=== PATIENT | female | born 1950 | race Caucasian/White ===

== ENCOUNTER 2021-06-27 17:57 | Inpatient (IN) | payer MEDICARE ==
[~2021-06-27] VITALS: Ht 165.1 cm; Wt 90.0 kg
[2021-06-27] MEDS ORDERED: SODIUM CHLORIDE 0.9% 500 ML IV ONE (18:45)
[2021-06-27 18:51] LABS: Hemoglobin 13.5 g/dL (12.2-16.2); Mean Corpuscular Hemoglobin 29.4 pg (28.0-32.0); Mean Corpuscular Hgb Conc. 33.7 g/dL (32.0-36.0); Mean Corpuscular Volume 87.1 fL (80.0-100.0); Red Blood Cells 4.59 10^6/uL (4.0-5.20); Red Cell Distribution Width 14.6 % (11.8-14.3)
[2021-06-27 18:54] LABS: White Blood Cell 1.7 10^3/uL (4.4-10.8)
[2021-06-27 18:56] LABS: Band Neutrophils % (manual) 0; Basophils % (manual) 0 (0.0-2.0); Blast Cells 0; Eosinophils % (manual) 0 (0-7); Metamyelocytes % 0; Myelocytes % 0; Promyelocytes % 0; Reactive Lymphocytes 0
[2021-06-27 19:05] LABS: INR 1.01 (0.9-1.15); Partial Thromboplastin Time 33.5 sec (23.6-33.0)
[2021-06-27 19:08] LABS: Albumin 3.2 g/dL (3.4-5.0); BUN/Creatinine Ratio 12.3; Calcium 8.1 mg/dL (8.5-10.1); Potassium 3.8 mmol/L (3.5-5.1)
[2021-06-27 19:10] LABS: Bilirubin, Total 0.3 mg/dL (0.2-1.0); Total Protein 6.4 g/dL (6.4-8.2)
[2021-06-27] MEDS ORDERED: METOPROLOL SUCCINATE XL 50 MG TAB PO ONE (19:15)
[2021-06-27 19:26] LABS: Lactic Acid w/Reflex 2.4 mmol/L (0.4-2.0)
[2021-06-27 19:33] LABS: Magnesium 1.7 mg/dL (1.6-2.6)
[2021-06-27 20:15] LABS: Lymphocytes % (manual) 31 (10.0-50.0); Monocytes % (manual) 5 (0-12)
[2021-06-27] MEDS ORDERED: DEXTROSE (50%) 50ML SYRG IV PRN ×2 (20:45→22:30)
[2021-06-27] MEDS ORDERED: VANCOMYCIN 1GM/250ML 250 ML IV ONE ×2 (21:45)
[2021-06-27] MEDS ORDERED: dilTIAZem 25 MG/5 ML VIAL IV ONE (21:45)
[2021-06-27] MEDS ORDERED: TACROLIMUS 1 MG CAP PO SCH (22:00)
[2021-06-27] MEDS ORDERED: INSULIN LANTUS (GLARGINE) 1 /0.01ml (100units/ml) SC SCH (22:00)
[2021-06-27] MEDS: InsuLIN REG 1unit/0.01ml Soln (100units/ml) SC SCH (22:02)
[2021-06-27] MEDS: ACCU-CHEK COMFORT CURVE STRIP VI SCH (22:03)
[2021-06-27 22:22] LABS: Urine Bacteria NONE SEEN /hpf (None Seen); Urine Blood Negative /uL (Negative); Urine Specific Gravity 1.022 (1.001-1.035); Urine WBC 2 /hpf (0 - 5)
[2021-06-27] MEDS ORDERED: NITROGLYCERIN 0.4 MG SL TAB SL PRN (22:30)
[2021-06-27] MEDS ORDERED: MORPHINE SULFATE INJECTION 2 MG/ML SYRG IV PRN (22:30)
[2021-06-27] MEDS: APIXABAN 5 MG TAB PO SCH (22:37)
[2021-06-27] MEDS: MYCOPHENOLATE 250 MG CAP PO SCH (22:37)
[2021-06-27] MEDS ORDERED: PIPERACILLIN-TAZO 4.5GM 100 ML IV ONE (22:45)
[2021-06-27 22:58] LABS: Magnesium 1.7 mg/dL (1.6-2.6)
[2021-06-27 23:07] LABS: CRP High Sensitivity 1.79 mg/dL (< 0.3)
[2021-06-28 01:20] VITALS: BP 130/74
[2021-06-28 05:00] VITALS: BP 113/70
[2021-06-28] MEDS: InsuLIN REG 1unit/0.01ml Soln (100units/ml) SC SCH ×5 (05:35→21:46)
[2021-06-28] MEDS: ACCU-CHEK COMFORT CURVE STRIP VI SCH ×5 (05:35→21:45)
[2021-06-28 06:06] LABS: Hematocrit 39.4 % (36.0-46.0); Hemoglobin 13.1 g/dL (12.2-16.2); Mean Corpuscular Hgb Conc. 33.3 g/dL (32.0-36.0); Red Blood Cells 4.52 10^6/uL (4.0-5.20); Red Cell Distribution Width 14.5 % (11.8-14.3); White Blood Cell 2.4 10^3/uL (4.4-10.8)
[2021-06-28] MEDS: LEVOTHYROXINE SODIUM 112 MCG TAB PO SCH (06:18)
[2021-06-28 06:24] LABS: Basophils % (manual) 0 (0.0-2.0); Blast Cells 0; Eosinophils % (manual) 0 (0-7); Metamyelocytes % 0; Myelocytes % 0; Promyelocytes % 0; Reactive Lymphocytes 0
[2021-06-28 06:31] LABS: Albumin 3.1 g/dL (3.4-5.0); Potassium 3.5 mmol/L (3.5-5.1)
[2021-06-28 06:36] LABS: BUN/Creatinine Ratio 12.5; Bilirubin, Total 0.2 mg/dL (0.2-1.0)
[2021-06-28] MEDS ORDERED: TRAZ1TAB12 PO (06:45)
[2021-06-28] MEDS ORDERED: PRE1T PO (06:45)
[2021-06-28] MEDS ORDERED: ATOR20TA PO (06:45)
[2021-06-28] MEDS ORDERED: APIX5TAB PO (06:45)
[2021-06-28] MEDS ORDERED: MULT-1018 PO (06:45)
[2021-06-28] MEDS ORDERED: INSU100I43 SC (06:45)
[2021-06-28] MEDS ORDERED: MAGN400T40 PO (06:45)
[2021-06-28] MEDS ORDERED: CALC500C66 PO (06:45)
[2021-06-28] MEDS ORDERED: FERR-20 PO (06:45)
[2021-06-28] MEDS ORDERED: TACR1CAP19 PO ×2 (06:45)
[2021-06-28] MEDS ORDERED: SULF400I3 PO (06:45)
[2021-06-28] MEDS ORDERED: MELA3TAB27 PO (06:45)
[2021-06-28] MEDS ORDERED: METO-289 PO (06:45)
[2021-06-28] MEDS ORDERED: TIZA2CAP7 PO (06:45)
[2021-06-28] MEDS ORDERED: SENN1TAB14 PO (06:45)
[2021-06-28] MEDS ORDERED: LEVO112T4 PO (06:45)
[2021-06-28] MEDS ORDERED: LORA0.5T20 PO (06:45)
[2021-06-28] MEDS ORDERED: INSLANTI SC (06:45)
[2021-06-28] MEDS ORDERED: MYCO250C PO (06:45)
[2021-06-28] MEDS ORDERED: NATE120T5 PO (06:45)
[2021-06-28 08:03] LABS: Band Neutrophils % (manual) 2; Lymphocytes % (manual) 62 (10.0-50.0); Monocytes % (manual) 11 (0-12)
[2021-06-28] MEDS: ALBUTEROL SULF HFA 90MCG INH 200DOSE IN PRN (08:17)
[2021-06-28 09:00] VITALS: BP 126/69
[2021-06-28] MEDS ORDERED: DexAMETHasone SOD PHOS 10MG/1ML VIAL INJ IV SCH (10:00)
[2021-06-28] MEDS ORDERED: levoFLOXacin 500MG 100 ML IV SCH (10:00)
[2021-06-28] MEDS ORDERED: PANTOPRAZOLE 40 MG TAB PO SCH (10:00)
[2021-06-28] MEDS ORDERED: ENOXAPARIN SOD 30 MG/0.3 ML SYRINGE SC SCH (10:00)
[2021-06-28] MEDS ORDERED: METOPROLOL SUCCINATE XL 50 MG TAB PO SCH (10:00)
[2021-06-28] MEDS: ZINC SULFATE 220mg CAP or TAB PO SCH (10:07)
[2021-06-28] MEDS: APIXABAN 5 MG TAB PO SCH ×2 (10:07→21:41)
[2021-06-28] MEDS: ASCORBIC ACID 1,000 MG TAB PO SCH (10:08)
[2021-06-28] MEDS: CHOLECALCIFEROL (VITD3) 2,000 UNIT CAP/TAB PO SCH (10:08)
[2021-06-28] MEDS: MYCOPHENOLATE 250 MG CAP PO SCH ×2 (11:07→22:43)
[2021-06-28] MEDS: TACROLIMUS 1 MG CAP PO SCH ×2 (11:07→22:45)
[2021-06-28 13:00] VITALS: BP 111/74
[2021-06-28] MEDS ORDERED: FAMOTIDINE (10MG/ML) 2ML VL IV ONE (14:30)
[2021-06-28] MEDS: LORazepam 0.5 MG TAB PO PRN (15:03)
[2021-06-28] MEDS: SODIUM CHLORIDE 0.9% 1,000 ML IV SCH (15:04)
[2021-06-28] MEDS ORDERED: SUCR1SUS10 PO (15:25)
[2021-06-28] MEDS ORDERED: HYDR-4296 PO (15:25)
[2021-06-28] MEDS ORDERED: MELA5TAB8 PO (15:25)
[2021-06-28] MEDS ORDERED: NATE60TA5 PO (15:25)
[2021-06-28] MEDS ORDERED: DOCU100T15 PO (15:25)
[2021-06-28] MEDS ORDERED: PRED10TA PO (15:25)
[2021-06-28] MEDS ORDERED: HYDR-3682 PO (15:25)
[2021-06-28 17:00] VITALS: BP 108/65
[2021-06-28] MEDS: ATORVASTATIN 20 MG TAB PO SCH (21:41)
[2021-06-28] MEDS: methylPREDNISolone SOD SUCC 40 MG/ML VL IV SCH (21:42)
[2021-06-28] MEDS: metroNIDAZOLE 500MG/100ML 100 ML IV SCH (21:43)
[2021-06-28] MEDS: INSULIN LANTUS (GLARGINE) 1 /0.01ml (100units/ml) SC SCH (21:44)
[2021-06-28 22:00] VITALS: BP 123/49
[2021-06-28] MEDS: METOPROLOL TARTRATE 50 MG TAB PO SCH (22:40)
[2021-06-29 05:00] VITALS: BP 152/70
[2021-06-29 05:54] LABS: Mean Corpuscular Volume 87.1 fL (80.0-100.0); Red Cell Distribution Width 14.6 % (11.8-14.3)
[2021-06-29 05:58] LABS: Hematocrit 37.6 % (36.0-46.0); Hemoglobin 12.7 g/dL (12.2-16.2); Mean Corpuscular Hemoglobin 29.5 pg (28.0-32.0); Mean Corpuscular Hgb Conc. 33.9 g/dL (32.0-36.0); Red Blood Cells 4.32 10^6/uL (4.0-5.20)
[2021-06-29 06:14] LABS: BUN/Creatinine Ratio 12.6; Potassium 4.2 mmol/L (3.5-5.1)
[2021-06-29 06:15] LABS: Calcium 8.4 mg/dL (8.5-10.1)
[2021-06-29 06:33] LABS: White Blood Cell 1.5 10^3/uL (4.4-10.8)
[2021-06-29] MEDS: LEVOTHYROXINE SODIUM 112 MCG TAB PO SCH (06:34)
[2021-06-29] MEDS: metroNIDAZOLE 500MG/100ML 100 ML IV SCH ×3 (06:34→21:53)
[2021-06-29 06:35] LABS: Basophils % (manual) 0 (0.0-2.0); Blast Cells 0; Eosinophils % (manual) 0 (0-7); Metamyelocytes % 0; Myelocytes % 0; Promyelocytes % 0; Reactive Lymphocytes 0
[2021-06-29] MEDS: InsuLIN REG 1unit/0.01ml Soln (100units/ml) SC SCH ×5 (06:37→21:54)
[2021-06-29] MEDS: SODIUM CHLORIDE 0.9% 1,000 ML IV SCH (06:37)
[2021-06-29] MEDS: ACCU-CHEK COMFORT CURVE STRIP VI SCH ×5 (06:38→22:06)
[2021-06-29] MEDS: ALBUTEROL SULF HFA 90MCG INH 200DOSE IN PRN (07:15)
[2021-06-29 08:23] LABS: Band Neutrophils % (manual) 3; Lymphocytes % (manual) 30 (10.0-50.0); Monocytes % (manual) 15 (0-12)
[2021-06-29 09:00] VITALS: BP 136/69
[2021-06-29] MEDS: FAMOTIDINE (10MG/ML) 2ML VL IV SCH (09:41)
[2021-06-29] MEDS: levoFLOXacin 250MG 50 ML IV SCH (09:41)
[2021-06-29] MEDS: methylPREDNISolone SOD SUCC 40 MG/ML VL IV SCH (09:42)
[2021-06-29] MEDS: MYCOPHENOLATE 250 MG CAP PO SCH ×2 (09:42→22:09)
[2021-06-29] MEDS: ZINC SULFATE 220mg CAP or TAB PO SCH (09:42)
[2021-06-29] MEDS: METOPROLOL TARTRATE 50 MG TAB PO SCH ×2 (09:43→22:10)
[2021-06-29] MEDS: APIXABAN 5 MG TAB PO SCH ×2 (09:43→22:09)
[2021-06-29] MEDS: TACROLIMUS 1 MG CAP PO SCH ×2 (09:43→22:08)
[2021-06-29] MEDS: CHOLECALCIFEROL (VITD3) 2,000 UNIT CAP/TAB PO SCH (09:44)
[2021-06-29] MEDS: ASCORBIC ACID 1,000 MG TAB PO SCH (09:44)
[2021-06-29] MEDS: LORazepam 0.5 MG TAB PO PRN (09:44)
[2021-06-29] MEDS ORDERED: DEXTROSE (50%) 50ML SYRG IV PRN (11:30)
[2021-06-29 12:30] VITALS: BP 150/75
[2021-06-29 17:00] VITALS: BP 142/72
[2021-06-29 21:31] VITALS: BP 157/70
[2021-06-29] MEDS: INSULIN LANTUS (GLARGINE) 1 /0.01ml (100units/ml) SC SCH (21:55)
[2021-06-29] MEDS: ATORVASTATIN 20 MG TAB PO SCH (22:08)
[2021-06-29] MEDS: ACETAMINOPHEN 500 MG TAB PO PRN (22:22)
[2021-06-30] MEDS: LORazepam 0.5 MG TAB PO PRN ×3 (01:07→22:08)
[2021-06-30 05:00] VITALS: BP 141/63
[2021-06-30] MEDS: InsuLIN REG 1unit/0.01ml Soln (100units/ml) SC SCH ×4 (06:27→22:07)
[2021-06-30] MEDS: LEVOTHYROXINE SODIUM 112 MCG TAB PO SCH (06:40)
[2021-06-30] MEDS: metroNIDAZOLE 500MG/100ML 100 ML IV SCH (06:40)
[2021-06-30] MEDS: ACCU-CHEK COMFORT CURVE STRIP VI SCH ×4 (06:40→22:04)
[2021-06-30 07:30] LABS: Potassium 3.6 mmol/L (3.5-5.1)
[2021-06-30 08:00] LABS: Calcium 8.7 mg/dL (8.5-10.1)
[2021-06-30] MEDS: ALBUTEROL SULF HFA 90MCG INH 200DOSE IN PRN ×2 (08:33→20:27)
[2021-06-30] MEDS: levoFLOXacin 250MG 50 ML IV SCH (08:43)
[2021-06-30] MEDS: CHOLECALCIFEROL (VITD3) 2,000 UNIT CAP/TAB PO SCH (08:43)
[2021-06-30] MEDS: FAMOTIDINE (10MG/ML) 2ML VL IV SCH (08:43)
[2021-06-30] MEDS: APIXABAN 5 MG TAB PO SCH (08:44)
[2021-06-30] MEDS: ZINC SULFATE 220mg CAP or TAB PO SCH (08:44)
[2021-06-30] MEDS: ASCORBIC ACID 1,000 MG TAB PO SCH (08:44)
[2021-06-30] MEDS: METOPROLOL TARTRATE 50 MG TAB PO SCH ×2 (08:45→22:06)
[2021-06-30 09:00] VITALS: BP 144/95
[2021-06-30] MEDS: TACROLIMUS 1 MG CAP PO SCH ×2 (09:03→22:06)
[2021-06-30] MEDS: MYCOPHENOLATE 250 MG CAP PO SCH ×2 (09:03→22:04)
[2021-06-30] MEDS ORDERED: methylPREDNISolone SOD SUCC 40 MG/ML VL IV SCH (10:00)
[2021-06-30] MEDS ORDERED: traMADol HCL 50 MG TAB PO PRN (12:00)
[2021-06-30] MEDS ORDERED: METOPROLOL TARTRATE 50 MG TAB PO ONE (12:00)
[2021-06-30] MEDS ORDERED: LEVOTHYROXINE SODIUM 112 MCG TAB PO ONE (12:00)
[2021-06-30] MEDS: Glucerna Carbsteady SHAKE Vanilla 8oz PO SCH ×2 (12:25→18:08)
[2021-06-30 13:00] VITALS: BP 110/84
[2021-06-30] MEDS ORDERED: DIGOXIN (250MCG/ML) 2 ML AMPULE IV ONE ×3 (14:00→17:45)
[2021-06-30] MEDS ORDERED: ONDANSETRON HCL 4 MG/2 ML VIAL ONE (14:21)
[2021-06-30] MEDS ORDERED: AMIODARONE HCL 150 MG in D5W 5% 100 ML IV ONE (16:15)
[2021-06-30] MEDS ORDERED: AMIODARONE 450mg/250ml AE 250 ML IV SCH (16:30)
[2021-06-30 17:00] VITALS: BP 107/71
[2021-06-30] MEDS: DOXYCYCLINE 100MG/250ML 250 ML IV SCH (17:00)
[2021-06-30 17:30] VITALS: BP 118/84
[2021-06-30] MEDS ORDERED: MAGNESIUM SULFATE 1GM/100ML 100 ML IV ONE (17:45)
[2021-06-30] MEDS: metroNIDAZOLE 500 MG TAB PO SCH (20:20)
[2021-06-30 21:38] VITALS: BP 126/73
[2021-06-30] MEDS: APIXABAN 2.5 MG TAB PO SCH (22:05)
[2021-06-30] MEDS: ATORVASTATIN 20 MG TAB PO SCH (22:05)
[2021-06-30] MEDS: INSULIN LANTUS (GLARGINE) 1 /0.01ml (100units/ml) SC SCH (22:07)
[2021-06-30] MEDS: AMIODARONE 450mg/250ml AE 250 ML IV SCH (22:52)
[2021-07-01] VITALS (7 sets, daily range): BP systolic 89–113; BP diastolic 55–79
[2021-07-01] MEDS: ACETAMINOPHEN 500 MG TAB PO PRN (01:40)
[2021-07-01] MEDS: ONDANSETRON HCL 4 MG/2 ML VIAL IV PRN ×2 (03:32→16:55)
[2021-07-01] MEDS: metroNIDAZOLE 500 MG TAB PO SCH ×2 (03:43→12:17)
[2021-07-01] MEDS ORDERED: CARVEDILOL 3.125 MG TAB PO ONE ×2 (04:45)
[2021-07-01] MEDS: DOXYCYCLINE 100MG/250ML 250 ML IV SCH ×2 (05:11→16:57)
[2021-07-01] MEDS: ACCU-CHEK COMFORT CURVE STRIP VI SCH ×4 (06:53→22:20)
[2021-07-01] MEDS: LEVOTHYROXINE SODIUM 112 MCG TAB PO SCH (06:54)
[2021-07-01] MEDS: InsuLIN REG 1unit/0.01ml Soln (100units/ml) SC SCH ×4 (06:56→22:26)
[2021-07-01] MEDS: LORazepam 0.5 MG TAB PO PRN ×2 (07:01→23:35)
[2021-07-01 07:17] LABS: Albumin 3.2 g/dL (3.4-5.0); Calcium 8.6 mg/dL (8.5-10.1); Magnesium 2.6 mg/dL (1.6-2.6)
[2021-07-01 07:20] LABS: Hematocrit 42.4 % (36.0-46.0); Hemoglobin 14.3 g/dL (12.2-16.2); Mean Corpuscular Hgb Conc. 33.7 g/dL (32.0-36.0); Mean Corpuscular Volume 86.1 fL (80.0-100.0); Red Blood Cells 4.93 10^6/uL (4.0-5.20); Red Cell Distribution Width 14.5 % (11.8-14.3); White Blood Cell 2.7 10^3/uL (4.4-10.8)
[2021-07-01 07:22] LABS: Basophils % (manual) 0 (0.0-2.0); Eosinophils % (manual) 0 (0-7); Metamyelocytes % 0
[2021-07-01 07:23] LABS: Blast Cells 0; Myelocytes % 0; Promyelocytes % 0; Reactive Lymphocytes 0
[2021-07-01 07:26] LABS: BUN/Creatinine Ratio 17.9; Bilirubin, Total 0.3 mg/dL (0.2-1.0); CRP High Sensitivity 1.95 mg/dL (< 0.3)
[2021-07-01] MEDS ORDERED: dilTIAZem 25 MG/5 ML VIAL IV ONE (07:30)
[2021-07-01 08:13] LABS: Band Neutrophils % (manual) 2; Lymphocytes % (manual) 50 (10.0-50.0); Monocytes % (manual) 17 (0-12)
[2021-07-01] MEDS ORDERED: POTASSIUM EFFERVESENT TAB 25 MEQ PO ONE ×2 (08:15→10:00)
[2021-07-01] MEDS ORDERED: DIGOXIN (250MCG/ML) 2 ML AMPULE IV ONE (08:15)
[2021-07-01] MEDS: Glucerna Carbsteady SHAKE Vanilla 8oz PO SCH ×3 (09:12→17:30)
[2021-07-01] MEDS: FAMOTIDINE (10MG/ML) 2ML VL IV SCH (09:46)
[2021-07-01] MEDS: ZINC SULFATE 220mg CAP or TAB PO SCH (09:46)
[2021-07-01] MEDS: APIXABAN 2.5 MG TAB PO SCH ×2 (09:46→22:20)
[2021-07-01] MEDS: MYCOPHENOLATE 250 MG CAP PO SCH ×2 (09:46→22:19)
[2021-07-01] MEDS: predniSONE 5 MG TAB PO SCH (09:46)
[2021-07-01] MEDS: CHOLECALCIFEROL (VITD3) 2,000 UNIT CAP/TAB PO SCH (09:47)
[2021-07-01] MEDS: TACROLIMUS 1 MG CAP PO SCH ×2 (09:47→22:20)
[2021-07-01] MEDS: ASCORBIC ACID 1,000 MG TAB PO SCH (09:47)
[2021-07-01] MEDS: dilTIAZem 120MG ER CAP PO SCH (09:53)
[2021-07-01] MEDS ORDERED: FUROSEMIDE 20 MG/2 ML VIAL IV ONE (15:15)
[2021-07-01] MEDS ORDERED: POTASSIUM CHL 20 Meq TABLET PO ONE (15:15)
[2021-07-01] MEDS: AMIODARONE 450mg/250ml AE 250 ML IV SCH (15:30)
[2021-07-01] MEDS: ALBUTEROL SULF HFA 90MCG INH 200DOSE IN PRN (15:42)
[2021-07-01] MEDS ORDERED: CARVEDILOL 3.125 MG TAB PO SCH (22:00)
[2021-07-01] MEDS: ATORVASTATIN 20 MG TAB PO SCH (22:20)
[2021-07-01] MEDS: INSULIN LANTUS (GLARGINE) 1 /0.01ml (100units/ml) SC SCH (22:26)
[2021-07-02] VITALS (9 sets, daily range): BP systolic 94–143; BP diastolic 61–72
[2021-07-02] MEDS ORDERED: METOPROLOL TARTRATE 50 MG TAB PO SCH (01:28)
[2021-07-02] MEDS: AMIODARONE 450mg/250ml AE 250 ML IV SCH ×2 (04:30→17:30)
[2021-07-02] MEDS: DOXYCYCLINE 100MG/250ML 250 ML IV SCH ×2 (05:00→16:09)
[2021-07-02 06:41] LABS: BUN/Creatinine Ratio 15.1; Calcium 8.4 mg/dL (8.5-10.1); Potassium 3.9 mmol/L (3.5-5.1)
[2021-07-02] MEDS: ACCU-CHEK COMFORT CURVE STRIP VI SCH ×4 (06:54→22:15)
[2021-07-02] MEDS: LEVOTHYROXINE SODIUM 112 MCG TAB PO SCH (06:54)
[2021-07-02] MEDS: InsuLIN REG 1unit/0.01ml Soln (100units/ml) SC SCH ×4 (06:56→22:23)
[2021-07-02] MEDS: Glucerna Carbsteady SHAKE Vanilla 8oz PO SCH ×3 (08:00→16:28)
[2021-07-02] MEDS: ASCORBIC ACID 1,000 MG TAB PO SCH (09:05)
[2021-07-02] MEDS: TACROLIMUS 1 MG CAP PO SCH ×2 (09:05→22:15)
[2021-07-02] MEDS: MYCOPHENOLATE 250 MG CAP PO SCH ×2 (09:05→22:14)
[2021-07-02] MEDS: METOPROLOL TARTRATE 25 MG TAB PO SCH ×2 (09:05→22:15)
[2021-07-02] MEDS: APIXABAN 2.5 MG TAB PO SCH ×2 (09:05→22:14)
[2021-07-02] MEDS: predniSONE 5 MG TAB PO SCH (09:05)
[2021-07-02] MEDS: ZINC SULFATE 220mg CAP or TAB PO SCH (09:05)
[2021-07-02] MEDS: CHOLECALCIFEROL (VITD3) 2,000 UNIT CAP/TAB PO SCH (09:06)
[2021-07-02] MEDS: dilTIAZem 120MG ER CAP PO SCH (09:36)
[2021-07-02] MEDS: LORazepam 0.5 MG TAB PO PRN (16:28)
[2021-07-02] MEDS: ALBUTEROL SULF HFA 90MCG INH 200DOSE IN PRN (21:59)
[2021-07-02] MEDS: AMIODARONE HCL 200 MG TAB PO SCH (22:14)
[2021-07-02] MEDS: ATORVASTATIN 20 MG TAB PO SCH (22:14)
[2021-07-02] MEDS: INSULIN LANTUS (GLARGINE) 1 /0.01ml (100units/ml) SC SCH (22:23)
[2021-07-03] MEDS: DOXYCYCLINE 100MG/250ML 250 ML IV SCH ×2 (04:51→16:29)
[2021-07-03 05:00] VITALS: BP 125/88
[2021-07-03] MEDS: LEVOTHYROXINE SODIUM 112 MCG TAB PO SCH (06:36)
[2021-07-03] MEDS: ACCU-CHEK COMFORT CURVE STRIP VI SCH ×4 (06:36→21:33)
[2021-07-03] MEDS: InsuLIN REG 1unit/0.01ml Soln (100units/ml) SC SCH ×4 (06:39→21:38)
[2021-07-03] MEDS: Glucerna Carbsteady SHAKE Vanilla 8oz PO SCH ×3 (07:50→16:33)
[2021-07-03] MEDS: ZINC SULFATE 220mg CAP or TAB PO SCH (08:46)
[2021-07-03] MEDS: METOPROLOL TARTRATE 25 MG TAB PO SCH ×2 (08:46→21:46)
[2021-07-03] MEDS: predniSONE 5 MG TAB PO SCH (08:46)
[2021-07-03] MEDS: AMIODARONE HCL 200 MG TAB PO SCH ×2 (08:46→21:44)
[2021-07-03] MEDS: MYCOPHENOLATE 250 MG CAP PO SCH ×2 (08:46→21:41)
[2021-07-03] MEDS: TACROLIMUS 1 MG CAP PO SCH ×2 (08:47→21:45)
[2021-07-03] MEDS: dilTIAZem 120MG ER CAP PO SCH (08:47)
[2021-07-03] MEDS: ASCORBIC ACID 1,000 MG TAB PO SCH (08:47)
[2021-07-03] MEDS: CHOLECALCIFEROL (VITD3) 2,000 UNIT CAP/TAB PO SCH (08:47)
[2021-07-03 09:00] VITALS: BP 120/69
[2021-07-03] MEDS: APIXABAN 2.5 MG TAB PO SCH ×2 (09:31→21:44)
[2021-07-03 13:00] VITALS: BP 130/62
[2021-07-03] MEDS: ONDANSETRON HCL 4 MG/2 ML VIAL IV PRN (16:03)
[2021-07-03 17:00] VITALS: BP 130/57
[2021-07-03 20:00] VITALS: BP 118/59
[2021-07-03] MEDS: ALBUTEROL SULF HFA 90MCG INH 200DOSE IN PRN (21:13)
[2021-07-03] MEDS: INSULIN LANTUS (GLARGINE) 1 /0.01ml (100units/ml) SC SCH (21:37)
[2021-07-03] MEDS: ATORVASTATIN 20 MG TAB PO SCH (21:41)
[2021-07-03 22:00] VITALS: BP 118/59
[2021-07-04 04:41] VITALS: BP 104/71
[2021-07-04] MEDS: DOXYCYCLINE 100MG/250ML 250 ML IV SCH (05:01)
[2021-07-04] MEDS: ALBUTEROL SULF HFA 90MCG INH 200DOSE IN PRN (05:42)
[2021-07-04] MEDS: LEVOTHYROXINE SODIUM 112 MCG TAB PO SCH (06:35)
[2021-07-04] MEDS: ACCU-CHEK COMFORT CURVE STRIP VI SCH ×4 (06:35→22:19)
[2021-07-04] MEDS: InsuLIN REG 1unit/0.01ml Soln (100units/ml) SC SCH ×4 (06:39→22:22)
[2021-07-04] MEDS: Glucerna Carbsteady SHAKE Vanilla 8oz PO SCH ×3 (08:00→18:00)
[2021-07-04 08:30] VITALS: BP 86/47
[2021-07-04] MEDS: predniSONE 5 MG TAB PO SCH (09:43)
[2021-07-04] MEDS: ZINC SULFATE 220mg CAP or TAB PO SCH (09:43)
[2021-07-04] MEDS: MYCOPHENOLATE 250 MG CAP PO SCH ×2 (09:44→22:19)
[2021-07-04] MEDS: AMIODARONE HCL 200 MG TAB PO SCH ×2 (09:44→22:17)
[2021-07-04] MEDS: ASCORBIC ACID 1,000 MG TAB PO SCH (09:45)
[2021-07-04] MEDS: TACROLIMUS 1 MG CAP PO SCH ×2 (09:45→22:18)
[2021-07-04] MEDS: CHOLECALCIFEROL (VITD3) 2,000 UNIT CAP/TAB PO SCH (09:45)
[2021-07-04] MEDS: METOPROLOL TARTRATE 25 MG TAB PO SCH ×2 (09:45→22:18)
[2021-07-04] MEDS: APIXABAN 2.5 MG TAB PO SCH (09:45)
[2021-07-04] MEDS: LORazepam 0.5 MG TAB PO PRN (10:16)
[2021-07-04 12:30] VITALS: BP 105/67
[2021-07-04] MEDS: ceFAZolin 1GM/50ML 50 ML IV SCH (13:34)
[2021-07-04] MEDS: ACETAMINOPHEN 325 MG TAB PO PRN (13:34)
[2021-07-04 15:37] LABS: Basophils # (auto) 0 10 ^3/uL (0-0.2); Basophils % (auto) 0.5 % (0.0-2.0); Eosinophils # (auto) 0 10 ^3/uL (0-0.8); Eosinophils % (auto) 0.1 % (0.0-7.0); Hematocrit 42.1 % (36.0-46.0); Hemoglobin 14.6 g/dL (12.2-16.2); Lymphocytes # (auto) 0.7 10 ^3/uL (0.4-5.4); Lymphocytes % (auto) 22.7 % (10.0-50.0); Mean Corpuscular Hemoglobin 29.8 pg (28.0-32.0); Mean Corpuscular Hgb Conc. 34.6 g/dL (32.0-36.0); Monocytes # (auto) 0.5 10 ^3/uL (0-1.3); Monocytes % (auto) 15.2 % (0.0-12.0); Neutrophils # (auto) 1.8 10 ^3/uL (1.6-8.6); Neutrophils % (auto) 61.5 % (37.0-80.0); Nucleated Red Blood Cells % 0.5 %; Red Cell Distribution Width 14.7 % (11.8-14.3)
[2021-07-04 15:40] LABS: Albumin 2.7 g/dL (3.4-5.0); Calcium 8.1 mg/dL (8.5-10.1); Potassium 4.4 mmol/L (3.5-5.1)
[2021-07-04 15:42] LABS: BUN/Creatinine Ratio 18.4
[2021-07-04 15:45] LABS: Bilirubin, Total 0.4 mg/dL (0.2-1.0); Total Protein 5.7 g/dL (6.4-8.2)
[2021-07-04 17:00] VITALS: BP 106/44
[2021-07-04 22:00] VITALS: BP 121/69
[2021-07-04] MEDS: ATORVASTATIN 20 MG TAB PO SCH (22:18)
[2021-07-04] MEDS: APIXABAN 5 MG TAB PO SCH (22:19)
[2021-07-04] MEDS: INSULIN LANTUS (GLARGINE) 1 /0.01ml (100units/ml) SC SCH (22:24)
[2021-07-05] MEDS: ceFAZolin 1GM/50ML 50 ML IV SCH ×2 (01:58→13:58)
[2021-07-05] MEDS: LORazepam 0.5 MG TAB PO PRN ×2 (02:02→18:22)
[2021-07-05] MEDS: ACETAMINOPHEN 325 MG TAB PO PRN ×2 (05:07→18:23)
[2021-07-05] MEDS: ACCU-CHEK COMFORT CURVE STRIP VI SCH ×4 (06:53→22:03)
[2021-07-05] MEDS: LEVOTHYROXINE SODIUM 112 MCG TAB PO SCH (06:53)
[2021-07-05] MEDS: InsuLIN REG 1unit/0.01ml Soln (100units/ml) SC SCH ×4 (06:54→22:14)
[2021-07-05] MEDS: Glucerna Carbsteady SHAKE Vanilla 8oz PO SCH ×3 (08:00→18:00)
[2021-07-05 09:00] VITALS: BP 85/56
[2021-07-05 09:30] LABS: Hematocrit 42.1 % (36.0-46.0); Hemoglobin 14.2 g/dL (12.2-16.2); Mean Corpuscular Hgb Conc. 33.7 g/dL (32.0-36.0); Mean Corpuscular Volume 86.1 fL (80.0-100.0); Red Cell Distribution Width 14.6 % (11.8-14.3); White Blood Cell 3.1 10^3/uL (4.4-10.8)
[2021-07-05 09:52] LABS: Basophils % (manual) 0 (0.0-2.0); Blast Cells 0; Calcium 8.5 mg/dL (8.5-10.1); Eosinophils % (manual) 0 (0-7); Metamyelocytes % 0; Myelocytes % 0; Potassium 3.8 mmol/L (3.5-5.1); Promyelocytes % 0; Reactive Lymphocytes 0
[2021-07-05 09:59] LABS: Albumin 2.7 g/dL (3.4-5.0); BUN/Creatinine Ratio 24.3; Bilirubin, Total 0.4 mg/dL (0.2-1.0); Total Protein 5.5 g/dL (6.4-8.2)
[2021-07-05] MEDS: METOPROLOL TARTRATE 25 MG TAB PO SCH (10:00)
[2021-07-05] MEDS: APIXABAN 5 MG TAB PO SCH ×2 (10:02→22:14)
[2021-07-05] MEDS: MYCOPHENOLATE 250 MG CAP PO SCH ×2 (10:02→22:15)
[2021-07-05] MEDS: predniSONE 5 MG TAB PO SCH (10:02)
[2021-07-05] MEDS: AMIODARONE HCL 200 MG TAB PO SCH ×2 (10:02→22:14)
[2021-07-05] MEDS: ZINC SULFATE 220mg CAP or TAB PO SCH (10:02)
[2021-07-05] MEDS: ASCORBIC ACID 1,000 MG TAB PO SCH (10:03)
[2021-07-05] MEDS: CHOLECALCIFEROL (VITD3) 2,000 UNIT CAP/TAB PO SCH (10:03)
[2021-07-05] MEDS: TACROLIMUS 1 MG CAP PO SCH ×2 (10:03→22:28)
[2021-07-05] MEDS: INSULIN LANTUS (GLARGINE) 1 /0.01ml (100units/ml) SC SCH ×2 (10:05→22:13)
[2021-07-05 10:16] LABS: Band Neutrophils % (manual) 2; Lymphocytes % (manual) 31 (10.0-50.0); Monocytes % (manual) 13 (0-12)
[2021-07-05 13:00] VITALS: BP 111/66
[2021-07-05] MEDS ORDERED: DIGOXIN (250MCG/ML) 2 ML AMPULE IV ONE (15:00)
[2021-07-05 17:00] VITALS: BP 101/70
[2021-07-05 22:00] VITALS: BP 108/70
[2021-07-05] MEDS ORDERED: METOPROLOL TARTRATE 25 MG TAB PO SCH (22:00)
[2021-07-05] MEDS: ATORVASTATIN 20 MG TAB PO SCH (22:14)
[2021-07-06] MEDS: ceFAZolin 1GM/50ML 50 ML IV SCH ×2 (01:27→17:24)
[2021-07-06 05:00] VITALS: BP 138/72
[2021-07-06] MEDS: LEVOTHYROXINE SODIUM 112 MCG TAB PO SCH (06:59)
[2021-07-06] MEDS: ACCU-CHEK COMFORT CURVE STRIP VI SCH ×4 (07:00→21:58)
[2021-07-06] MEDS: InsuLIN REG 1unit/0.01ml Soln (100units/ml) SC SCH ×4 (07:00→22:00)
[2021-07-06 07:15] LABS: Basophils # (auto) 0 10 ^3/uL (0-0.2); Basophils % (auto) 0.2 % (0.0-2.0); Eosinophils # (auto) 0 10 ^3/uL (0-0.8); Eosinophils % (auto) 0.8 % (0.0-7.0); Hematocrit 42.4 % (36.0-46.0); Hemoglobin 14.1 g/dL (12.2-16.2); Lymphocytes # (auto) 0.8 10 ^3/uL (0.4-5.4); Mean Corpuscular Hemoglobin 28.8 pg (28.0-32.0); Mean Corpuscular Hgb Conc. 33.4 g/dL (32.0-36.0); Mean Corpuscular Volume 86.2 fL (80.0-100.0); Monocytes # (auto) 0.3 10 ^3/uL (0-1.3); Monocytes % (auto) 11.7 % (0.0-12.0); Neutrophils # (auto) 1.5 10 ^3/uL (1.6-8.6); Neutrophils % (auto) 56.3 % (37.0-80.0); Nucleated Red Blood Cells % 0.4 %; Red Blood Cells 4.91 10^6/uL (4.0-5.20); Red Cell Distribution Width 14.7 % (11.8-14.3); White Blood Cell 2.7 10^3/uL (4.4-10.8)
[2021-07-06 07:25] LABS: INR 1.09 (0.9-1.15); Partial Thromboplastin Time 31.9 sec (23.6-33.0)
[2021-07-06 07:29] LABS: BUN/Creatinine Ratio 26.9; Calcium 8.9 mg/dL (8.5-10.1); Potassium 4.2 mmol/L (3.5-5.1)
[2021-07-06 09:00] VITALS: BP 123/75
[2021-07-06] MEDS ORDERED: METOPROLOL TARTRATE 25 MG TAB PO ONE (10:45)
[2021-07-06] MEDS ORDERED: PROMETHAZINE W/CODEINE 5 ML ORAL SYRUP PO PRN (11:00)
[2021-07-06] MEDS: INSULIN LANTUS (GLARGINE) 1 /0.01ml (100units/ml) SC SCH ×2 (11:05→21:59)
[2021-07-06] MEDS: ASCORBIC ACID 1,000 MG TAB PO SCH (12:52)
[2021-07-06] MEDS: Glucerna Carbsteady SHAKE Vanilla 8oz PO SCH ×2 (12:52→18:01)
[2021-07-06] MEDS: MYCOPHENOLATE 250 MG CAP PO SCH ×2 (12:52→21:53)
[2021-07-06] MEDS: DIGOXIN 0.125 MG TAB PO SCH (12:53)
[2021-07-06] MEDS: CHOLECALCIFEROL (VITD3) 2,000 UNIT CAP/TAB PO SCH (12:54)
[2021-07-06] MEDS: AMIODARONE HCL 200 MG TAB PO SCH ×2 (12:54→21:53)
[2021-07-06] MEDS: ZINC SULFATE 220mg CAP or TAB PO SCH (12:55)
[2021-07-06] MEDS: TACROLIMUS 1 MG CAP PO SCH ×2 (12:55→21:58)
[2021-07-06] MEDS: predniSONE 5 MG TAB PO SCH (12:55)
[2021-07-06] MEDS: APIXABAN 5 MG TAB PO SCH ×2 (12:56→21:53)
[2021-07-06 13:00] VITALS: BP 119/59
[2021-07-06 15:00] VITALS: BP 104/78
[2021-07-06] MEDS: ACETAMINOPHEN 325 MG TAB PO PRN (19:31)
[2021-07-06] MEDS: ATORVASTATIN 20 MG TAB PO SCH (21:57)
[2021-07-06 22:00] VITALS: BP 157/84
[2021-07-06] MEDS: METOPROLOL TARTRATE 25 MG TAB PO SCH (22:02)
[2021-07-07] MEDS: ceFAZolin 1GM/50ML 50 ML IV SCH (01:19)
[2021-07-07] MEDS: LORazepam 0.5 MG TAB PO PRN (03:43)
[2021-07-07 05:00] VITALS: BP 134/62
[2021-07-07] MEDS: ACCU-CHEK COMFORT CURVE STRIP VI SCH ×4 (06:10→22:29)
[2021-07-07] MEDS: InsuLIN REG 1unit/0.01ml Soln (100units/ml) SC SCH ×4 (06:12→22:22)
[2021-07-07] MEDS: LEVOTHYROXINE SODIUM 112 MCG TAB PO SCH (06:15)
[2021-07-07] MEDS: Glucerna Carbsteady SHAKE Vanilla 8oz PO SCH ×3 (08:45→18:42)
[2021-07-07 09:00] VITALS: BP 121/65
[2021-07-07] MEDS ORDERED: TACR1CAP19 PO ×2 (09:57)
[2021-07-07] MEDS ORDERED: INSU100I43 SC (09:57)
[2021-07-07] MEDS ORDERED: SUCR1SUS10 PO ×2 (09:57→16:09)
[2021-07-07] MEDS ORDERED: INSLANTI SC ×2 (09:57→16:09)
[2021-07-07] MEDS: INSULIN LANTUS (GLARGINE) 1 /0.01ml (100units/ml) SC SCH ×2 (10:00→22:27)
[2021-07-07] MEDS: DIGOXIN 0.125 MG TAB PO SCH (10:36)
[2021-07-07] MEDS: ASCORBIC ACID 1,000 MG TAB PO SCH (10:36)
[2021-07-07] MEDS: predniSONE 5 MG TAB PO SCH (10:36)
[2021-07-07] MEDS: APIXABAN 5 MG TAB PO SCH ×2 (10:37→22:28)
[2021-07-07] MEDS: ZINC SULFATE 220mg CAP or TAB PO SCH (10:37)
[2021-07-07] MEDS: CHOLECALCIFEROL (VITD3) 2,000 UNIT CAP/TAB PO SCH (10:37)
[2021-07-07] MEDS: METOPROLOL TARTRATE 25 MG TAB PO SCH ×2 (10:38→22:29)
[2021-07-07] MEDS: AMIODARONE HCL 200 MG TAB PO SCH ×2 (10:38→22:28)
[2021-07-07] MEDS: MYCOPHENOLATE 250 MG CAP PO SCH ×2 (10:41→22:27)
[2021-07-07] MEDS: REPAGLINIDE 0.5 MG TAB PO SCH ×2 (12:36→18:21)
[2021-07-07 13:00] VITALS: BP 136/83
[2021-07-07] MEDS: CEPHALEXIN 250 MG CAP PO SCH ×2 (14:30→22:28)
[2021-07-07] MEDS ORDERED: ATOR20TA PO (16:09)
[2021-07-07] MEDS ORDERED: HYDR-3682 PO (16:09)
[2021-07-07] MEDS ORDERED: SENN1TAB14 PO (16:09)
[2021-07-07] MEDS ORDERED: CALCTAB62 OR (16:09)
[2021-07-07] MEDS ORDERED: LORA0.5T19 PO (16:09)
[2021-07-07] MEDS ORDERED: DOCU250C4 PO (16:09)
[2021-07-07 17:00] VITALS: BP 142/94
[2021-07-07] MEDS: TACROLIMUS 1 MG CAP PO SCH (18:26)
[2021-07-07 22:05] VITALS: BP 128/80
[2021-07-07] MEDS: traZODone HCL 50 MG TAB PO SCH (22:28)
[2021-07-07] MEDS: ATORVASTATIN 20 MG TAB PO SCH (22:29)
[2021-07-07] MEDS: ONDANSETRON HCL 4 MG/2 ML VIAL IV PRN (22:39)
[2021-07-07] MEDS: ACETAMINOPHEN 325 MG TAB PO PRN (22:39)
[2021-07-08 05:07] VITALS: BP 142/82
[2021-07-08] MEDS: LEVOTHYROXINE SODIUM 112 MCG TAB PO SCH (06:48)
[2021-07-08] MEDS: REPAGLINIDE 0.5 MG TAB PO SCH ×3 (06:48→17:24)
[2021-07-08] MEDS: ACCU-CHEK COMFORT CURVE STRIP VI SCH ×4 (06:48→21:08)
[2021-07-08] MEDS: CEPHALEXIN 250 MG CAP PO SCH ×3 (06:48→21:08)
[2021-07-08] MEDS: TACROLIMUS 1 MG CAP PO SCH ×2 (06:48→17:22)
[2021-07-08] MEDS: InsuLIN REG 1unit/0.01ml Soln (100units/ml) SC SCH ×4 (06:49→21:32)
[2021-07-08 07:03] LABS: Potassium 4.2 mmol/L (3.5-5.1)
[2021-07-08 07:11] LABS: Calcium 8.9 mg/dL (8.5-10.1)
[2021-07-08] MEDS: Glucerna Carbsteady SHAKE Vanilla 8oz PO SCH ×3 (08:54→17:23)
[2021-07-08 09:00] VITALS: BP 119/67
[2021-07-08] MEDS: predniSONE 5 MG TAB PO SCH (10:11)
[2021-07-08] MEDS: ZINC SULFATE 220mg CAP or TAB PO SCH (10:11)
[2021-07-08] MEDS: APIXABAN 5 MG TAB PO SCH ×2 (10:12→21:07)
[2021-07-08] MEDS: DIGOXIN 0.125 MG TAB PO SCH (10:13)
[2021-07-08] MEDS: ASCORBIC ACID 1,000 MG TAB PO SCH (10:13)
[2021-07-08] MEDS: CHOLECALCIFEROL (VITD3) 2,000 UNIT CAP/TAB PO SCH (10:14)
[2021-07-08] MEDS: AMIODARONE HCL 200 MG TAB PO SCH ×2 (10:18→21:07)
[2021-07-08] MEDS: METOPROLOL TARTRATE 25 MG TAB PO SCH ×2 (10:19→21:10)
[2021-07-08] MEDS: INSULIN LANTUS (GLARGINE) 1 /0.01ml (100units/ml) SC SCH ×2 (10:22→21:32)
[2021-07-08] MEDS: MYCOPHENOLATE 250 MG CAP PO SCH ×2 (10:29→21:07)
[2021-07-08] MEDS ORDERED: DIGO1TAB48 PO (12:36)
[2021-07-08] MEDS ORDERED: CEPH250C28 PO (12:36)
[2021-07-08] MEDS ORDERED: CHOL1CAP47 PO (12:36)
[2021-07-08] MEDS ORDERED: AMIO200T4 GT (12:36)
[2021-07-08] MEDS ORDERED: ZINC220C10 PO (12:36)
[2021-07-08 13:00] VITALS: BP 136/64
[2021-07-08] MEDS ORDERED: MAGNESIUM SULFATE 1GM/100ML 100 ML IV ONE (16:15)
[2021-07-08 17:00] VITALS: BP 135/85
[2021-07-08] MEDS: traZODone HCL 50 MG TAB PO SCH (21:07)
[2021-07-08] MEDS: ATORVASTATIN 20 MG TAB PO SCH (21:08)
[2021-07-08 21:18] VITALS: BP 121/71
[2021-07-08] MEDS: ACETAMINOPHEN 325 MG TAB PO PRN (21:20)
[2021-07-09 05:00] VITALS: BP 133/88
[2021-07-09] MEDS: LEVOTHYROXINE SODIUM 112 MCG TAB PO SCH (06:16)
[2021-07-09] MEDS: CEPHALEXIN 250 MG CAP PO SCH ×3 (06:16→21:56)
[2021-07-09] MEDS: REPAGLINIDE 0.5 MG TAB PO SCH ×3 (06:16→17:28)
[2021-07-09] MEDS: ACCU-CHEK COMFORT CURVE STRIP VI SCH ×4 (06:16→21:57)
[2021-07-09] MEDS: TACROLIMUS 1 MG CAP PO SCH ×2 (06:16→17:28)
[2021-07-09] MEDS: InsuLIN REG 1unit/0.01ml Soln (100units/ml) SC SCH ×4 (06:26→21:58)
[2021-07-09 08:00] VITALS: BP 128/59
[2021-07-09] MEDS: Glucerna Carbsteady SHAKE Vanilla 8oz PO SCH ×3 (08:00→17:28)
[2021-07-09 09:00] VITALS: BP 127/79
[2021-07-09] MEDS: predniSONE 5 MG TAB PO SCH (09:24)
[2021-07-09] MEDS: APIXABAN 5 MG TAB PO SCH ×2 (09:25→21:56)
[2021-07-09] MEDS: AMIODARONE HCL 200 MG TAB PO SCH ×2 (09:25→21:56)
[2021-07-09] MEDS: ZINC SULFATE 220mg CAP or TAB PO SCH (09:25)
[2021-07-09] MEDS: MYCOPHENOLATE 250 MG CAP PO SCH ×2 (09:25→22:01)
[2021-07-09] MEDS: CHOLECALCIFEROL (VITD3) 2,000 UNIT CAP/TAB PO SCH (09:26)
[2021-07-09] MEDS: ASCORBIC ACID 1,000 MG TAB PO SCH (09:26)
[2021-07-09] MEDS: DIGOXIN 0.125 MG TAB PO SCH (09:26)
[2021-07-09] MEDS: METOPROLOL TARTRATE 25 MG TAB PO SCH ×2 (09:26→21:57)
[2021-07-09] MEDS: INSULIN LANTUS (GLARGINE) 1 /0.01ml (100units/ml) SC SCH ×2 (09:28→21:58)
[2021-07-09 13:00] VITALS: BP 149/77
[2021-07-09 16:36] VITALS: BP 124/67
[2021-07-09] MEDS: ONDANSETRON HCL 4 MG/2 ML VIAL IV PRN (18:03)
[2021-07-09] MEDS: traZODone HCL 50 MG TAB PO SCH (21:55)
[2021-07-09] MEDS: ATORVASTATIN 20 MG TAB PO SCH (21:56)
[2021-07-09 22:00] VITALS: BP 137/54
[2021-07-10] VITALS (7 sets, daily range): BP systolic 109–134; BP diastolic 58–70
[2021-07-10] MEDS: CEPHALEXIN 250 MG CAP PO SCH ×3 (06:18→21:36)
[2021-07-10] MEDS: InsuLIN REG 1unit/0.01ml Soln (100units/ml) SC SCH ×4 (06:35→21:48)
[2021-07-10] MEDS: ACCU-CHEK COMFORT CURVE STRIP VI SCH ×4 (06:35→21:37)
[2021-07-10] MEDS: LEVOTHYROXINE SODIUM 112 MCG TAB PO SCH (06:42)
[2021-07-10] MEDS: TACROLIMUS 1 MG CAP PO SCH ×2 (06:43→17:41)
[2021-07-10] MEDS: REPAGLINIDE 0.5 MG TAB PO SCH ×3 (06:43→17:40)
[2021-07-10] MEDS: Glucerna Carbsteady SHAKE Vanilla 8oz PO SCH ×3 (08:00→17:41)
[2021-07-10] MEDS: predniSONE 5 MG TAB PO SCH (08:55)
[2021-07-10] MEDS: ZINC SULFATE 220mg CAP or TAB PO SCH (08:55)
[2021-07-10] MEDS: AMIODARONE HCL 200 MG TAB PO SCH ×2 (08:55→21:36)
[2021-07-10] MEDS: MYCOPHENOLATE 250 MG CAP PO SCH ×2 (08:55→21:35)
[2021-07-10] MEDS: ASCORBIC ACID 1,000 MG TAB PO SCH (08:56)
[2021-07-10] MEDS: APIXABAN 5 MG TAB PO SCH ×2 (08:56→21:36)
[2021-07-10] MEDS: CHOLECALCIFEROL (VITD3) 2,000 UNIT CAP/TAB PO SCH (08:57)
[2021-07-10] MEDS: INSULIN LANTUS (GLARGINE) 1 /0.01ml (100units/ml) SC SCH ×2 (08:57→21:48)
[2021-07-10] MEDS: DIGOXIN 0.125 MG TAB PO SCH (08:59)
[2021-07-10] MEDS: METOPROLOL TARTRATE 25 MG TAB PO SCH ×2 (08:59→21:37)
[2021-07-10] MEDS ORDERED: PANTOPRAZOLE 40 MG TAB PO ONE (13:00)
[2021-07-10] MEDS: traZODone HCL 50 MG TAB PO SCH (21:36)
[2021-07-10] MEDS: ATORVASTATIN 20 MG TAB PO SCH (21:49)
[2021-07-11 05:00] VITALS: BP 122/70
[2021-07-11] MEDS ORDERED: PANTOPRAZOLE 40 MG TAB PO SCH (10:00)
== END 2021-07-11 06:01 | disposition short-term general hospital (02) | DRG 871 ==
LOC: EDBD 17:57 → ER 18:03 → TELE 22:19 → TELE-EAST 23:42
PROVIDERS: ADMIT Nurse Practitioner; ATTEND Internal Medicine
PROC: 05HC33Z Insertion of Infusion Device into Left Basilic Vein, Percutaneous Approach (ICD-10-PCS; principal; 2021-07-06)
PROC: B54NZZA Ultrasonography of Left Upper Extremity Veins, Guidance (ICD-10-PCS; 2021-07-06)
DX: A41.89 Other specified sepsis (principal); U07.1 COVID-19; E43 Unspecified severe protein-calorie malnutrition; J12.82 Pneumonia due to coronavirus disease 2019; I50.41 Acute combined systolic (congestive) and diastolic (congestive) heart failure; J96.00 Acute respiratory failure, unspecified whether with hypoxia or hypercapnia; I21.4 Non-ST elevation (NSTEMI) myocardial infarction; D68.69 Other thrombophilia; I13.0 Hypertensive heart and chronic kidney disease with heart failure and stage 1 through stage 4 chronic kidney disease, or unspecified chronic kidney disease; Z94.2 Lung transplant status; R04.2 Hemoptysis; D84.9 Immunodeficiency, unspecified; N17.9 Acute kidney failure, unspecified; N18.30 Chronic kidney disease, stage 3 unspecified; E03.9 Hypothyroidism, unspecified; E11.22 Type 2 diabetes mellitus with diabetic chronic kidney disease; I70.0 Atherosclerosis of aorta; I48.0 Paroxysmal atrial fibrillation; K76.0 Fatty (change of) liver, not elsewhere classified; R19.7 Diarrhea, unspecified; T38.0X5A Adverse effect of glucocorticoids and synthetic analogues, initial encounter; M47.816 Spondylosis without myelopathy or radiculopathy, lumbar region; Z79.01 Long term (current) use of anticoagulants; Z79.899 Other long term (current) drug therapy; Z80.1 Family history of malignant neoplasm of trachea, bronchus and lung; Z82.3 Family history of stroke; Z88.1 Allergy status to other antibiotic agents; Z88.8 Allergy status to other drugs, medicaments and biological substances; Y92.89 Other specified places as the place of occurrence of the external cause; Z68.34 Body mass index [BMI] 34.0-34.9, adult
CPT/HCPCS: 36415; 36600; 71045; 80048; 80053; 80162; 80197; 81001; 82542; 82728; 82805; 82962; 83036; 83605; 83615; 83690; 83735; 83880; 84443; 84484; 85007; 85025; 85027; 85379; 85610; 85730; 86141; 86850; 86900; 86901; 87040; 87045; 87426; 87427; 87493; 93005; 93306; 94640; 96361; 96365; 96372; 96375; G0378; J0690; J1100; J1815; J1956; J2405; J2543; J3490; J7060; J7507; J7517